=== PATIENT | male | born 1980 | race Caucasian/White ===

== ENCOUNTER 2024-01-02 15:01 | Outpatient (REF) | payer OTHER, SELFPAY ==
[2024-01-06 09:23] LABS: Oxcarbazepine 21.1 mcg/mL (8.0-35.0)
== END 2024-01-02 15:02 | disposition home or self-care (01) ==
LOC: HO.LAB 15:01
PROVIDERS: Visit Provider Psychiatry & Neurology Neurology
DX: R56.9 Unspecified convulsions (principal)
CPT/HCPCS: 36415; 80339

== ENCOUNTER 2025-10-06 12:45 | Outpatient (AMB) | payer OTHER, SELFPAY ==
--- NOTE | 2025-10-06 12:52 | A.OFFVIS_ITS ---
Intake Visit Reasons: 6M SZ Allergies No Known Allergies Allergy (Verified 10/06/25 12:57) Medication List - Last Reconciled 10/06/25 by Gale Reeder CNP allopurinol 300 mg PO DAILY oxcarbazepine 600 mg PO BID sertraline 100 mg PO DAILY HPI Comments Details: He was here with few concerns. He was having episodes of tingling all over his body that would come on suddenly and last up to an hour each time, about 2- 3x/month. He felt run down after. It first started about a year ago, but has been happening more over the last 6 months. He noticed that it may be triggered by lack of sleep and fatigue. Can have some mild headaches with these episodes. Has headache almost every day, usually in the morning and resolves as the day goes on, not significantly bothersome. No associated photophobia, sonophobia, nausea, or vomiting. No missed doses of oxcarbazepine. No jace vu spells or LOC. Sleep was not so good as his 4-year-old was having trouble sleeping which disrupted his sleep. He was also having trouble with focus, which says he has struggled with for many years, even going back to high school, and remembers struggling to focusing on application for [employer] in high school, which he was not accepted into as he messed up on application paperwork. He has trouble focusing on things that require prolonged attention, for example following lecture during professional development. He will hyper-focus on things that are not necessary important to others, but are of interest to him. He has trouble starting work, procrastinates and does everything right before the deadline. He also interrupts people when they are talking and in the middle of a sentence. He wanted to try medication to help with focus while he was home from work for 2 weeks for winter break. Sertraline helped with mood. Has trouble focusing for long periods of time. Has some headaches, usually in the morning and resolve within an hour. He had some occasional sharp pains to right side of that lasted few seconds and resolved on their own.? Previously, may have had few jace vu spells, lasting only few seconds. They were not as intense as previous episodes and he did not feel drained afterward. No LOC. Infrequent headaches, with brief, sharp pains. Memory was about the same, not as sharp as before. He was still having some trouble with word recall when teaching and with names of students. 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 Has 2 young children. Was working with chiropractor and taking low dose THC which helped with sleep at one point. Occasional headache. Some buzzing in ears (L>R) when lying down at night again which he had before, but went away for period of time after starting medication. Had 5 jace vous the day he came off Keppra. He started having brief jaec vu spells lasting few seconds in childhood or teenage years for total of 5-6x in life. On 08/06/2023, he had much stronger episode associated with headache. The jace vu is a feeling that he has been there, everything looks familiar, and then gets tingling all over body. The first component lasts 5-10 seconds, the tingling lasts for about 10-15 seconds, and after he has brain fog feeling for a while. Spell on 08/06/2023, 08/07/2023, 08/27/2023, 08/29/2023, 08/31/2023, 09/03/2023 and on 09/07/2023. One episode was associated with loss of consciousness. He saw it on the camera since nobody was there. He was putting his 2-year-old into the crib. He has been somewhat stressed out because of some behavior issues with his 2-year-old, had been sleep deprived, and not sleeping well for a while. He tried 50 mg trazadone which made him feel groggy. With this last episode on 09/07/2023, he was worked up with a CTA and MRI of the brain which are reported below and a routine EEG which was normal. He was started on Keppra 500 mg twice a day. No further spells, but felt irritable and fatigued with Keppra. His only other complaint is that of numbness in his hands at night and which may also be waking him up that started around 08/2023. He works as a teacher. No history of head trauma. No family history of seizures. 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 [facility] Medical History (Updated 10/06/25 @ 13:24 by Gale Reeder CNP) Facial palsy as trauma Gout Localization-related (focal) (partial) symptomatic epilepsy and epileptic syndromes with complex partial seizures, not intractable, without status epilepticus Bilateral carpal tunnel syndrome Anxiety Review of Systems Const Denies chills, Denies daytime sleepiness, Denies difficulty sleeping, Reports fatigue, Denies fever(s), Denies frequent falls, Reports headache(s), Denies increased appetite, Denies poor appetite, Denies snoring, Denies weakness, Denies weight gain and Denies weight loss Eyes Denies loss of vision ENT Denies vertigo, Denies dizziness, Reports headache(s) and Denies neck pain Card Denies chest pain at rest, Denies chest pain with activity, Denies syncope, Denies leg edema, Denies palpitations, Denies dyspnea and Denies dyspnea on exertion Resp Denies cough, Denies dyspnea, Denies dyspnea on exertion and Denies snoring GI Denies abdominal pain, Denies constipation, Denies heartburn, Denies diarrhea and Denies nausea Denies urinary frequency, Denies urinary incontinence and Denies urinary urgency Musc Denies abnormal gait, Denies back pain, Denies myalgias, Denies arthralgias, Denies neck pain, Reports numbness and Reports tingling Neuro Denies abnormal gait, Denies vertigo, Denies dizziness, Denies syncope, Denies frequent falls, Reports headache(s), Denies lack of coordination, Denies loss of vision, Denies memory loss, Reports numbness, Denies Other visual disturbances, Denies restless legs, Denies seizure-like activity, Reports tingling, Denies paresthesias, Denies tremor(s) and Denies weakness Psych Reports anxiety, Denies depression, Denies auditory hallucinations, Denies memory loss and Denies visual hallucinations Endo Reports fatigue and Denies palpitations Physical Exam Const Other: General Appearance:? normal, in no acute distress. Heart:? S1, S2 normal, no murmurs. Lungs:? clear anteriorly and posteriorly. Musculoskeletal:? normal. Extremities:? no edema. Psych:? alert, oriented, cognitive function intact, cooperative with exam. Neuro Other: Abnormal Neurological Findings:?R lower facial weakness. Mental Status: alert and oriented X 3. Normal attention, orientation, memory, and affect. Cranial Nerves: Pupils are equal, round, and reactive to light. External ocular muscles are intact. Visual hess are full, no ptosis. Face is asymmetrical, R facial weakness. Facial sensations are normal. Tongue protrudes in midline. Palate elevates symmetrically. Shoulder shrugging is normal Motor Examination: Normal muscle tone, bulk and strength. No atrophy or fasciculations. No drift of the extended upper extremities. DTR 2+. Plantars are flexor. Sensory Exam: Normal light touch, temperature, pinprick, vibration, and joint- position sensations. Rhomberg sign is absent. Coordination: No ataxia. No titubation. Gait Exam: Within normal limits. Cerebellar Signs: [id number] is okay. Extrapyramidal System: No tremor, rigidity with normal facial expressions. No bradykinesia. No bradyphrenia. Normal arm swing and posture. No propulsion or retropulsion. Speech: Normal. Results Reviewed Results Reviewed: 09/07/2023 MRI brain: Normal - single right temporoparietal subcortical white matter hyperintensity. CTA normal 10/16/23 NCV/EMG UE Normal motor and sensory nerve conduction velocities in the upper extremities. Normal EMG of the left C5-T1 innervated muscles. 11/07/23 Oxcarb 25.4 mid therapeutic Other labs normal. 11/05/23 48 hr EEG showed recurrent occipital 6 HZ spike discharges lasting up to 25 secs without clinical Sx. Oxcarbazepine 01/06/24: 21.1 08/21/24 EEG- WNL Assessment & Plan Assessment & Plan (1) Partial seizure with complex symptomatology: Code(s): R56.9 - Unspecified convulsions Category: Medical Plan: Continue oxcarbazepine 600mg 1 tablet twice a day. 48-hr ambulatory EEG ordered - if this would not be covered by insurance, will order routine EEG to get done first. Discussed option of adding second medication (such as topiramate, given its use for both seizures and headache control - however he was not significantly bothered by headaches) - prefers to hold off for now. (2) Anxiety: Code(s): F41.9 - Anxiety disorder, unspecified Category: Medical Plan: Continue sertraline 100mg 1 tablet daily. (3) ADD (attention deficit disorder): Code(s): F98.8 - Other specified behavioral and emotional disorders with onset usually occurring in childhood and adolescence Category: Medical Qualifiers: Attention deficit type: unspecified type Qualified Code(s): F98.8 - Other specified behavioral and emotional disorders with onset usually occurring in childhood and adolescence Plan: I recommended addressing this after EEG, however he is very bothered by these symptoms and would like to try medication for it. He prefers to try medication when he is home from work and will be home for about 2 weeks for winter break. Start methylphenidate 5mg 1 tablet daily in the morning, use/side effects reviewed. Orders: Orders EEG 48hr Ambulatory Today R56.9 - Unspecified convulsions Medications: New sertraline 100 mg PO DAILY 90 tabs 1RF 90 days methylphenidate HCl Partial Fill upon patient request. 5 mg PO QAM 30 tabs 0RF 30 days Coding Level of Care Code Est Pt Level 4 (09519) Diagnoses Partial seizure with complex symptomatology R56.9 Anxiety F41.9 Attention deficit disorder, unspecified type F98.8 Attention deficit type: unspecified type
== END 2025-10-06 13:26 | disposition home or self-care (01) ==
LOC: HO.HSM 12:46
PROVIDERS: PCP Family Medicine; Referring Provider Family Medicine; Visit Provider Registered Nurse
DX: R56.9 Unspecified convulsions (principal); F41.9 Anxiety disorder, unspecified; F98.8 Other specified behavioral and emotional disorders with onset usually occurring in childhood and adolescence
CPT/HCPCS: 99214